=== PATIENT | male | born 1965 | race Hispanic/Latino ===

== ENCOUNTER 2020-11-05 14:14 | Inpatient (IN) | payer OTHER ==
[~2020-11-05] VITALS: Ht 167.6 cm; Wt 91.2 kg
[2020-11-05 15:46] LABS: BASOPHILS % (AUTO) 0.2 % (0.0-5.0); HEMATOCRIT 39.9 % (42-54); LYMPHOCYTES % (AUTO) 5.5 % (21.0-51.0); MEAN CORPUSCULAR HEMOGLOBIN 27.9 pg (27.0-33.0); MEAN CORPUSCULAR HGB CONC 34.3 g/dL (32.0-36.0); MEAN CORPUSCULAR VOLUME 81.3 fL (79-99); MONOCYTES % (AUTO) 5.5 % (3.0-13.0); NEUTROPHILS % (AUTO) 88.2 % (40.0-77.0); PLATELET COUNT (AUTO) 98 K/uL (130-400); RED BLOOD CELL COUNT(AUTO) 4.91 MIL/uL (4.50-6.20); RED CELL DISTRIBUTION WIDTH 12.1 % (11.0-15.5); WHITE BLOOD COUNT (AUTO) 15.7 K/uL (4.8-10.8)
[2020-11-05 15:59] LABS: INR 1.36 (0.85-1.15); POTASSIUM 4.4 mmol/L (3.5-5.1); PROTHROMBIN TIME 14.4 SEC (9.6-11.6)
[2020-11-05 16:01] LABS: PARTIAL THROMBOPLASTIN TIME 31.9 SEC (26.3-35.5)
[2020-11-05 16:03] LABS: BILIRUBIN,TOTAL 0.7 mg/dL (0.2-1.0); TOTAL PROTEIN, SERUM 6.3 g/dL (6.0-8.3)
[2020-11-05 16:30] LABS: APPEARANCE,URINE Clear (CLEAR); BILIRUBIN,URINE Negative (NEGATIVE); COLOR,URINE Dark Yellow (YELLOW); GLUCOSE, URINE (UA) Negative (NEGATIVE); KETONES,URINE Negative (NEGATIVE); LEUKOCYTE ESTERASE ,URINE Negative (NEGATIVE); NITRATE,URINE Negative (NEGATIVE); OCCULT BLOOD,URINE Negative (NEGATIVE); PROTEIN,URINE POS 1+ mg/dL (NEGATIVE)
[2020-11-05 16:41] LABS: PLATELET MORPHOLOGY PLT CLUMPS PRESENT
[2020-11-05 16:43] LABS: BACTERIA,URINE Few /HPF (None Seen); RBC,URINE 0-1 /HPF (0-1); WBC,URINE 0-1 /HPF (0-1)
[2020-11-05 16:44] LABS: MUCUS,URINE Rare LPF (None Seen); SQUAMOUS EPITHELIAL CELL,UR Rare /HPF (0-2)
[2020-11-05] MEDS ORDERED: CEFTRIAXONE 1G VIAL IVP ONE (17:30)
[2020-11-05] MEDS ORDERED: ALBUTEROL INHALER 90MCG/INH IH PRN (17:30)
[2020-11-05] MEDS: AZITHROMYCIN 500MG VIAL IVPB SCH (18:23)
[2020-11-05] MEDS: 0.9% NACL 250ML IVPB SCH (18:23)
[2020-11-05] MEDS: CEFTRIAXONE 1G VIAL IVP SCH (21:00)
[2020-11-05] MEDS ORDERED: DEXAMETHASONE SOD PHOSPHATE 4 MG/ML 1ML VIAL IVP SCH (21:00)
[2020-11-05] MEDS ORDERED: LACTATED RINGERS 1000ML 1,000 ML IV SCH (21:00)
[2020-11-05] MEDS ORDERED: ERGOCALCIFEROL (VITAMIN D2) 50,000 UNIT CAPSULE PO ONE (21:00)
[2020-11-05] MEDS ORDERED: 0.9%NACL 1000ML 1,000 ML IV SCH (21:00)
[2020-11-05] MEDS ORDERED: HEPARIN 25,000 UNITS/250ML D5W 250 ML IV SCH (21:00)
[2020-11-05 21:01] LABS: BASOPHILS % (AUTO) 0.1 % (0.0-5.0); HEMATOCRIT 39.2 % (42-54); LYMPHOCYTES % (AUTO) 7.4 % (21.0-51.0); MEAN CORPUSCULAR HEMOGLOBIN 28.5 pg (27.0-33.0); MEAN CORPUSCULAR HGB CONC 35.2 g/dL (32.0-36.0); MONOCYTES % (AUTO) 7.3 % (3.0-13.0); NEUTROPHILS % (AUTO) 84.5 % (40.0-77.0); PLATELET COUNT (AUTO) 293 K/uL (130-400); RED BLOOD CELL COUNT(AUTO) 4.84 MIL/uL (4.50-6.20); RED CELL DISTRIBUTION WIDTH 12.1 % (11.0-15.5); WHITE BLOOD COUNT (AUTO) 16.2 K/uL (4.8-10.8)
[2020-11-05] MEDS ORDERED: ERGOCALCIFEROL (VITAMIN D2) 50,000 UNIT CAPSULE ONE (22:26)
[2020-11-05] MEDS: FAMOTIDINE 20MG VIAL IV SCH (22:31)
[2020-11-05] MEDS ORDERED: ACETAMINOPHEN 500 MG TABLET ONE (22:41)
[2020-11-05 23:36] VITALS: BP 137/82
[2020-11-05] MEDS ORDERED: HEPARIN 5,000 UNIT VIAL ONE (23:56)
[2020-11-06 02:09] VITALS: BP 134/80
[2020-11-06] MEDS: ALBUTEROL INHALER 90MCG/INH IH SCH ×4 (02:14→17:56)
[2020-11-06 03:37] LABS: ABG BASE EXCESS -3.4 mmol/L (-2.0-3.0); ABG HCO3 19.6 mmol/L (21.0-28.0); ABG OXYGEN SATURATION 95.5 % (95.0-99.0); ABG PCO2 30 mmHg (35-48)
[2020-11-06 04:46] VITALS: BP 133/83
[2020-11-06 06:24] LABS: BASOPHILS % (AUTO) 0.1 % (0.0-5.0); HEMATOCRIT 39.5 % (42-54); LYMPHOCYTES % (AUTO) 5.3 % (21.0-51.0); MEAN CORPUSCULAR HGB CONC 34.4 g/dL (32.0-36.0); MEAN CORPUSCULAR VOLUME 81.4 fL (79-99); MONOCYTES % (AUTO) 2.8 % (3.0-13.0); NEUTROPHILS % (AUTO) 91.3 % (40.0-77.0); PLATELET COUNT (AUTO) 324 K/uL (130-400); RED BLOOD CELL COUNT(AUTO) 4.85 MIL/uL (4.50-6.20); RED CELL DISTRIBUTION WIDTH 12.1 % (11.0-15.5); WHITE BLOOD COUNT (AUTO) 16.4 K/uL (4.8-10.8)
[2020-11-06 06:37] LABS: ALBUMIN 2.7 g/dL (3.5-5.0); BILIRUBIN,TOTAL 0.5 mg/dL (0.2-1.0); POTASSIUM 4.4 mmol/L (3.5-5.1)
[2020-11-06 06:41] LABS: INR 1.43 (0.85-1.15); PROTHROMBIN TIME 15.1 SEC (9.6-11.6)
[2020-11-06 06:55] LABS: PARTIAL THROMBOPLASTIN TIME 103.5 SEC (26.3-35.5)
[2020-11-06] MEDS: CEFTRIAXONE 1G VIAL IVP SCH ×2 (09:06→20:43)
[2020-11-06] MEDS: FAMOTIDINE 20MG VIAL IV SCH (09:06)
[2020-11-06] MEDS: ASCORBIC ACID 500 MG TAB PO SCH (09:06)
[2020-11-06] MEDS: ZINC SULFATE 220 CAPSULE PO SCH (09:07)
[2020-11-06 12:00] VITALS: BP 134/77
[2020-11-06] MEDS ORDERED: PANTOPRAZOLE 40 MG TAB DR PO SCH (12:00)
[2020-11-06] MEDS: PANTOPRAZOLE 40 MG TAB DR PO SCH (13:16)
[2020-11-06 14:23] LABS: INR 1.3 (0.85-1.15); PROTHROMBIN TIME 13.8 SEC (9.6-11.6)
[2020-11-06 14:24] LABS: PARTIAL THROMBOPLASTIN TIME 49.9 SEC (26.3-35.5)
[2020-11-06 16:33] LABS: HEMOGLOBIN A1C 5.8 % (4.0-6.0)
[2020-11-06] MEDS: 0.9% NACL 250ML IVPB SCH (17:56)
[2020-11-06] MEDS: AZITHROMYCIN 500MG VIAL IVPB SCH (17:56)
[2020-11-06] MEDS ORDERED: APIXABAN 5 MG TABLET PO SCH (19:30)
[2020-11-06 20:07] VITALS: BP 127/72
[2020-11-06 20:30] LABS: INR 1.2 (0.85-1.15); PROTHROMBIN TIME 12.9 SEC (9.6-11.6)
[2020-11-06 20:31] LABS: PARTIAL THROMBOPLASTIN TIME 23.9 SEC (26.3-35.5)
[2020-11-06 22:39] VITALS: BP 123/76
[2020-11-07] VITALS (7 sets, daily range): BP systolic 125–143; BP diastolic 72–86
[2020-11-07] MEDS: ALBUTEROL INHALER 90MCG/INH IH SCH ×3 (00:02→18:00)
[2020-11-07] MEDS ORDERED: AZITHROMYCIN 500MG+NS 250ML 0 ML IV ONE (03:39)
[2020-11-07] MEDS ORDERED: AZITHROMYCIN 500MG+NS 250ML 250 ML IV ONE (04:12)
[2020-11-07 06:45] LABS: ALBUMIN 2.5 g/dL (3.5-5.0); BILIRUBIN,TOTAL 0.3 mg/dL (0.2-1.0); CREATININE 1.1 mg/dL (0.5-1.5); POTASSIUM 4.2 mmol/L (3.5-5.1); TOTAL PROTEIN, SERUM 6.6 g/dL (6.0-8.3)
[2020-11-07 07:02] LABS: CRP QUANTITATIVE 156.4 mg/L (0.00-9.0)
[2020-11-07] MEDS: CEFTRIAXONE 1G VIAL IVP SCH ×2 (08:30→20:58)
[2020-11-07] MEDS: APIXABAN 5 MG TABLET PO SCH ×2 (08:30→21:00)
[2020-11-07] MEDS: ZINC SULFATE 220 CAPSULE PO SCH (08:31)
[2020-11-07] MEDS: PANTOPRAZOLE 40 MG TAB DR PO SCH (08:31)
[2020-11-07] MEDS: ASCORBIC ACID 500 MG TAB PO SCH (08:31)
[2020-11-07] MEDS: 0.9% NACL 250ML IVPB SCH (16:58)
[2020-11-07] MEDS ORDERED: AZITHROMYCIN 500MG+NS 250ML IV SCH (17:00)
[2020-11-08] MEDS: ALBUTEROL INHALER 90MCG/INH IH SCH ×2 (00:08→05:44)
[2020-11-08 03:50] VITALS: BP 125/71
[2020-11-08 04:57] LABS: ALBUMIN 2.5 g/dL (3.5-5.0); BILIRUBIN,TOTAL 0.4 mg/dL (0.2-1.0); CREATININE 1.1 mg/dL (0.5-1.5); CRP QUANTITATIVE 74.9 mg/L (0.00-9.0); TOTAL PROTEIN, SERUM 6.5 g/dL (6.0-8.3)
[2020-11-08] MEDS: PANTOPRAZOLE 40 MG TAB DR PO SCH (08:16)
[2020-11-08] MEDS: APIXABAN 5 MG TABLET PO SCH (08:16)
[2020-11-08] MEDS: CEFTRIAXONE 1G VIAL IVP SCH (08:16)
[2020-11-08] MEDS: ASCORBIC ACID 500 MG TAB PO SCH (08:16)
[2020-11-08] MEDS: ZINC SULFATE 220 CAPSULE PO SCH (08:16)
[2020-11-08 08:26] VITALS: BP 130/86
[2020-11-08 11:19] VITALS: BP 135/85
[2020-11-08 16:43] VITALS: BP 122/84
[2020-11-08] MEDS ORDERED: CEPH500C2 PO (17:24)
[2020-11-08] MEDS ORDERED: APIX5TAB PO (17:24)
[2020-11-08] MEDS ORDERED: PANT40TA PO (17:24)
== END 2020-11-08 18:37 | disposition home or self-care (01) | DRG 177 ==
LOC: EDH 14:14 → EDHIP 14:15 → 2AH 11-07 00:24
PROVIDERS: ADMIT Internal Medicine; ATTEND Internal Medicine
DX: U07.1 COVID-19 (principal); J12.82 Pneumonia due to coronavirus disease 2019; I26.99 Other pulmonary embolism without acute cor pulmonale; E87.1 Hypo-osmolality and hyponatremia; D68.59 Other primary thrombophilia; E66.01 Morbid (severe) obesity due to excess calories; D72.810 Lymphocytopenia; Z79.01 Long term (current) use of anticoagulants; Z68.32 Body mass index [BMI] 32.0-32.9, adult
CPT/HCPCS: 36415; 36600; 71045; 80053; 81001; 82550; 82728; 82803; 83036; 83605; 83615; 84145; 84484; 85025; 85378; 85610; 85730; 86140; 86156; 86850; 86870; 86900; 86901; 87040; 87088; 87635; 87637; 93306; 93356; 93970; C9803; G0378; J0456; J0696; J1100; J1644; J3490; J7030; J7050

== ENCOUNTER 2020-11-10 17:56 | Emergency (ER) | payer OTHER ==
[~2020-11-10] VITALS: Ht 177.8 cm; Wt 89.4 kg
[~2020-11-10 17:56] MED LIST: APIX5TAB PO; CEPH500C2 PO; PANT40TA PO
[2020-11-10 17:58] VITALS: BP 132/72
[2020-11-10 18:46] LABS: BASOPHILS % (AUTO) 0.3 % (0.0-5.0); EOSINOPHILS % (AUTO) 0.6 % (0.0-8.0); HEMATOCRIT 43.3 % (42-54); LYMPHOCYTES % (AUTO) 11.9 % (21.0-51.0); MEAN CORPUSCULAR HEMOGLOBIN 27.6 pg (27.0-33.0); MEAN CORPUSCULAR HGB CONC 32.6 g/dL (32.0-36.0); MEAN CORPUSCULAR VOLUME 84.7 fL (79-99); MONOCYTES % (AUTO) 5.5 % (3.0-13.0); NEUTROPHILS % (AUTO) 80.5 % (40.0-77.0); PLATELET COUNT (AUTO) 491 K/uL (130-400); RED BLOOD CELL COUNT(AUTO) 5.11 MIL/uL (4.50-6.20); RED CELL DISTRIBUTION WIDTH 12.5 % (11.0-15.5); WHITE BLOOD COUNT (AUTO) 13.3 K/uL (4.8-10.8)
[2020-11-10 19:00] LABS: CREATININE 1.3 mg/dL (0.5-1.5); POTASSIUM 4.6 mmol/L (3.5-5.1)
[2020-11-10 19:04] LABS: ALBUMIN 3.1 g/dL (3.5-5.0); BILIRUBIN,TOTAL 0.3 mg/dL (0.2-1.0); TOTAL PROTEIN, SERUM 7.7 g/dL (6.0-8.3)
[2020-11-10 19:17] LABS: B-TYPE NATRIURETIC PEPTIDE 7 pg/mL (0-100)
[2020-11-10] MEDS ORDERED: KETOROLAC 60 MG VIAL (30MG/ML) IM ONE (20:30)
[2020-11-10] MEDS ORDERED: CYCLOBENZAPRINE HCL 10 MG TABLET PO ONE (20:30)
[2020-11-10] MEDS ORDERED: HYDROCODONE/ACETAMINOPHEN 10/325 MG TAB PO ONE (20:30)
[2020-11-10] MEDS ORDERED: NAPR-1180 PO (20:53)
[2020-11-10] MEDS ORDERED: CYCL10 PO (20:53)
[2020-11-10 20:56] VITALS: BP 131/76
[2020-11-10 21:07] LABS: APPEARANCE,URINE Cloudy (CLEAR); BILIRUBIN,URINE Negative (NEGATIVE); COLOR,URINE Dark Yellow (YELLOW); GLUCOSE, URINE (UA) Negative (NEGATIVE); KETONES,URINE Negative (NEGATIVE); LEUKOCYTE ESTERASE ,URINE Negative (NEGATIVE); NITRATE,URINE Negative (NEGATIVE); OCCULT BLOOD,URINE Negative (NEGATIVE); PROTEIN,URINE POS 1+ mg/dL (NEGATIVE)
[2020-11-10 21:15] LABS: AMPHET/METH SCREEN,URINE NEGATIVE (NEGATIVE); BARBITURATE SCREEN, URINE NEGATIVE (NEGATIVE); BENZODIAZEPINES SCREEN,URINE NEGATIVE (NEGATIVE); CANNABINOID SCREEN,URINE NEGATIVE (NEGATIVE); COCAINE SCREEN,URINE NEGATIVE (NEGATIVE); OPIATE SCREEN,URINE NEGATIVE (NEGATIVE); PHENCYCLIDINE SCREEN,URINE NEGATIVE (NEGATIVE)
[2020-11-10 21:20] LABS: BACTERIA,URINE Few /HPF (None Seen); RBC,URINE 0-1 /HPF (0-1); SQUAMOUS EPITHELIAL CELL,UR Rare /HPF (0-2); WBC,URINE 0-1 /HPF (0-1)
[2020-11-10 21:21] LABS: MUCUS,URINE Few LPF (None Seen); URIC ACID CRYSTALS,URINE Few /LPF (None Seen)
== END 2020-11-10 21:01 | disposition home or self-care (01) ==
LOC: EDH 17:56
DX: M94.0 Chondrocostal junction syndrome [Tietze] (principal); Z79.01 Long term (current) use of anticoagulants; Z79.1 Long term (current) use of non-steroidal anti-inflammatories (NSAID); Z98.890 Other specified postprocedural states
CPT/HCPCS: 36415; 71046; 71100; 80053; 80305; 81001; 82550; 83880; 84484; 85025; 93005; 96372; 99285; J1885

== ENCOUNTER → 2024-06-19 | Outpatient (CLI) | payer OTHER ==
[~2024-06-19] MED LIST changes: +CYCL10TA16 PO; +NAPR-1180 PO
--- NOTE | 2024-06-19 10:47 | HMCIMG ---
CT HEART SAVER PROMOTIONAL HISTORY: Cardiac calcification scoring. FINDINGS: The cardiac calcification scoring is 1.1. LAD = 1.1. Limited examination of the heart was performed. The study is done for additional or incidental findings. IMPRESSION: No additional findings.
== END | disposition home or self-care (01) ==
LOC: RAH 10:08
PROVIDERS: ATTEND Nurse Practitioner Family
DX: Z13.6 Encounter for screening for cardiovascular disorders (principal)
CPT/HCPCS: 75571